=== PATIENT | male | born 1980 | race Hispanic/Latino ===

== ENCOUNTER 2018-03-11 13:49 | Emergency (ER) | payer MEDICAID ==
[2018-03-11 13:50] VITALS: BMI 26.7
[2018-03-11 14:01] VITALS: TEMP 98.7
[2018-03-11 14:13] LABS: BASO # 0.1 K/uL (0.0-0.2); BASO % 0.8 % (0.0-2.0); EOS # 0.1 K/uL (0.0-0.7); EOS % 1.6 % (0.0-4.0); HEMOGLOBIN 13.9 g/dL (12.0-18.0); LYMPH # 1.1 K/uL (1.0-4.3); LYMPH % 14.4 % (20.0-40.0); MEAN CORPUSCULAR HEMOGLOBIN 33.6 pg (27.0-31.0); MEAN CORPUSCULAR HGB CONC 34.6 g/dL (33.0-37.0); MEAN PLATELET VOLUME 8.5 fL (7.2-11.7); MONO # 0.8 K/uL (0.0-0.8); MONO % 9.5 % (0.0-10.0); NEUT # 5.8 K/uL (1.8-7.0); NEUT % 73.7 % (50.0-75.0); RBC 4.13 Mil/uL (4.40-5.90); WHITE BLOOD COUNT 7.9 K/uL (4.8-10.8)
[2018-03-11] MEDS ORDERED: Sodium Chloride 0.9% 1,000 ML ONE (14:13)
[2018-03-11] MEDS: Sodium Chloride 0.9% 1,000 ML IV ONE (14:13)
[2018-03-11 14:22] LABS: MEAN CELL VOLUME 97.1 fL (80.0-94.0)
--- NOTE | 2018-03-11 14:32 | RAD ---
Date of service: 03/11/2018 PROCEDURE: CHEST RADIOGRAPH, 1 VIEW HISTORY: SOB COMPARISON: None available. FINDINGS: LUNGS: Clear. PLEURA: No pneumothorax or pleural fluid seen. CARDIOVASCULAR: Normal. OSSEOUS STRUCTURES: No significant abnormalities. VISUALIZED UPPER ABDOMEN: Normal. OTHER FINDINGS: None. IMPRESSION: No active disease.
[2018-03-11 14:34] LABS: ALB/GLOB RATIO 1.6 (1.0-2.1); ALT/SGPT 78 U/L (21-72); AST/SGOT 165 U/L (17-59); BLOOD UREA NITROGEN 10 mg/dL (9-20); CALCIUM 9.2 mg/dl (8.6-10.4); GFR NON-AFRICAN AMERICAN > 60
[2018-03-11 14:36] LABS: SQUAMOUS EPITHIAL < 1 /hpf (0-5); URINE AMORPHOUS SEDIMENT RARE /ul (<OCC); URINE BACTERIA OCC (<OCC); URINE BILIRUBIN NEGATIVE (NEGATIVE); URINE BLOOD NEGATIVE (NEGATIVE); URINE CLARITY Hazy (Clear); URINE COLOR Amber (YELLOW); URINE GLUCOSE (UA) 1+ mg/dL (Normal); URINE LEUKOCYTE ESTERASE NEG Leu/uL (Negative); URINE PROTEIN 2+ mg/dL (NEGATIVE)
[2018-03-11 14:43] LABS: CK-MB 2.07 ng/mL (0.0-3.38)
--- NOTE | 2018-03-11 14:44 | C.PDOC ---
History Of Present Illness 38-year-old male, is brought to the emergency department by EMS with complaints of fall. Patient was walking his dog outside when a bystander witnessed him fall on the floor while "shaking." Patient hit his head, and was brought to ED after. He admits to a Hx of cocaine use and alcohol abuse, but last drink was a few days ago. Pts last seizure was in 2006. No other complaints at this time. Time Seen by Provider: 03/11/18 14:02 Chief Complaint (Nursing): Seizure History Per: Patient History/Exam Limitations: no limitations Past Medical History Reviewed: Historical Data, Nursing Documentation, Vital Signs Vital Signs: Last Vital Signs Temp 98.7 F 03/11/18 13:50 Pulse 116 H 03/11/18 13:50 Resp 18 03/11/18 13:50 BP 128/92 H 03/11/18 13:50 Pulse Ox 97 03/11/18 13:50 - Medical History PMH: Bipolar Disorder, Depression, Seizures Denies: Diabetes Family History: States: No Known Family Hx - Social History Hx Alcohol Use: Yes Hx Substance Use: Yes - Immunization History Hx Tetanus Toxoid Vaccination: No Hx Influenza Vaccination: No Hx Pneumococcal Vaccination: No Review Of Systems Constitutional: Negative for: Fever, Chills Respiratory: Negative for: Shortness of Breath Gastrointestinal: Negative for: Nausea, Vomiting Musculoskeletal: Negative for: Back Pain Neurological: Negative for: Weakness, Numbness Physical Exam - Physical Exam Appears: Non-toxic, No Acute Distress Skin: Warm, Dry, No Rash Head: Laceration, Other (laceration to left parietal scalp) Eye(s): bilateral: Normal Inspection, PERRL, EOMI Nose: Normal Oral Mucosa: Moist Tongue: Normal Appearing, No Bite, No Laceration Lips: Normal Appearing Neck: Normal ROM Chest: Symmetrical Cardiovascular: Rhythm Regular, No Murmur Respiratory: Normal Breath Sounds, No Accessory Muscle Use Gastrointestinal/Abdominal: Normal Exam, Soft, No Tenderness Extremity: Normal ROM, No Deformity Neurological/Psych: Oriented x3, Normal Speech ED Course And Treatment - Laboratory Results Result Diagrams: 03/11/18 14:10 03/11/18 14:10 Lab Interpretation: No Acute Changes ECG: Interpreted By Me ECG Rhythm: Sinus Rhythm ECG Interpretation: No Acute Changes Rate From EC O2 Sat by Pulse Oximetry: 97 Pulse Ox Interpretation: Normal (RA) - Radiology CXR: Interpreted by Me CXR Interpretation: Yes: No Acute Disease - CT Scan/US No standard instances Other Rad Studies (CT/US): Read By Radiologist, Radiology Report Reviewed CT/US Interpretation: FINDINGS: HEMORRHAGE: No intracranial hemorrhage. BRAIN: No mass effect or edema. No atrophy or chronic microvascular ischemic changes. VENTRICLES: Unremarkable. No hydrocephalus. CALVARIUM: No fracture. High left frontal scalp hematoma. PARANASAL SINUSES: Unremarkable as visualized. No significant inflammatory changes. MASTOID AIR CELLS: Unremarkable as visualized. No inflammatory changes. OTHER FINDINGS: None. IMPRESSION: No intracranial hemorrhage. Left frontal scalp hematoma. Progress Note: Pt states he has to go to work and wants to leave. Patient developed seizure activity treated with ativan 2 mg IV. Treated with additional ativan 1 mg IV Reassessment Condition: Improved - Physician Consult Information Physician Contacted: Kannan Odonnell Outcome Of Conversation: admit Laceration - Laceration Repair No standard instances Wound Length (In cm): 3 cm scalp Description Of Wound: Linear Anesthesia: Lidocaine 1% Wound Examination: Irrigated With Saline Wound Closure: [place] Wound Complexity: Simple Disposition Discussed With Dr.: Kannan Odonnell Doctor Will See Patient In The: Hospital - Disposition Disposition: HOSPITALIZED Disposition Time: 16:00 Condition: STABLE - POA Present On Arrival: None - Clinical Impression Clinical Impression: Seizure, Seizure disorder - Scribe Statement The provider has reviewed the documentation as recorded by the Scribe (Nikolas Temple) All medical record entries made by the Scribe were at my direction and personally dictated by me. I have reviewed the chart and agree that the record accurately reflects my personal performance of the history, physical exam, medic al decision making, and the department course for this patient. I have also personally directed, reviewed, and agree with the discharge instructions and disposition. Decision To Admit - Pt Status Changed To: Hospital Disposition Of: Inpatient - Admit Certification Admit to Inpatient:: After my assessment, the patient will require hospitalization for at least two midnights. This is because of the severity of symptoms shown, intensity of services needed, and/or the medical risk in this patient being treated as an outpatient. - InPatient: Physician Admission Certification: I certify that this patient requires 2 or more midnights of care for the following reason:: Seizure - . Bed Request Type: Telemetry Admitting Physician: Kannan Odonnell Patient Diagnosis: Seizure, Seizure disorder
[2018-03-11 15:11] LABS: BARBITURATES, UR NEGATIVE (NEGATIVE); BENZODIAZEPINES, UR NEGATIVE (NEGATIVE); OPIATES, UR NEGATIVE (NEGATIVE); PHENCYCLIDINE, UR NEGATIVE (NEGATIVE)
--- NOTE | 2018-03-11 15:29 | CT ---
Date of service: 03/11/2018 PROCEDURE: CT HEAD WITHOUT CONTRAST. HISTORY: R/O Bleed COMPARISON: None available. TECHNIQUE: Axial computed tomography images were obtained through the head/brain without intravenous contrast. Radiation dose: Total exam DLP = 1228.27 mGy-cm. This CT exam was performed using one or more of the following dose reduction techniques: Automated exposure control, adjustment of the mA and/or kV according to patient size, and/or use of iterative reconstruction technique. FINDINGS: HEMORRHAGE: No intracranial hemorrhage. BRAIN: No mass effect or edema. No atrophy or chronic microvascular ischemic changes. VENTRICLES: Unremarkable. No hydrocephalus. CALVARIUM: No fracture. High left frontal scalp hematoma. PARANASAL SINUSES: Unremarkable as visualized. No significant inflammatory changes. MASTOID AIR CELLS: Unremarkable as visualized. No inflammatory changes. OTHER FINDINGS: None. IMPRESSION: No intracranial hemorrhage. Left frontal scalp hematoma.
[2018-03-11 15:48] VITALS: O2SAT 97
[2018-03-11] MEDS ORDERED: Lidocaine Hydrochloride 5 ML INJ ONE (15:54)
[2018-03-11 17:35] VITALS: BP 146/83; PULSE 98; RESP 20
--- NOTE | 2018-03-11 20:00 | CP.PCM.PN ---
Subjective - Date & Time of Evaluation Date of Evaluation: 03/11/18 Time of Evaluation: 19:51 - Subjective Subjective: Earlier tonight, I was called by nurse Ileana to help sign this pt out AMA. I tried multiple times to persuade the pt to stay for treatment of his seizure and head trauma. He was adamant about going home, and insisted that he did not want to be admitted for treatment in the first place. Dr. Odonnell was contacted and informed that the pt was signing out AMA. I spoke with the patient at length about the risks of seizures and worsening of his condition; included but not limited to worsening of alcohol withdrawal (DTs), brain , coma, cardiac arrest and . Pt reiterated to me that he understood the risks involved, and would like to sign out AMA. Pt was AAOx3, able to explain to me and the nurse that he could from his current condition. However, he continued to say that he has to go home. Pt was instructed to follow up with his PMD LARISSA, pt understood and agreed to do so. Pt was informed to go to the nearest Emergency Department for evaluation should his symptoms worsen; pt agreed and understood. He stated that he would like to go home, and signed the paper for AMA on his own will. Objective - Vital Signs/Intake and Output Vital Signs (last 24 hours): Temp Pulse Resp BP Pulse Ox 98.7 F 98 H 20 146/83 97 03/11/18 16:50 03/11/18 16:50 03/11/18 16:50 03/11/18 16:50 03/11/18 17:24 - Labs Labs: 03/11/18 14:10 03/11/18 14:10
--- NOTE | 2018-03-12 23:03 | CARD ---
APPROVED REPORT Date of service: 03/11/2018 EKG Measurement Heart [id number] <Conclusion> Normal sinus rhythm Possible Left atrial enlargement Left ventricular hypertrophy Abnormal ECG
== END 2018-03-11 18:15 | disposition left against medical advice (07) ==
LOC: C.ER 13:49 → C.9E 15:40 → UNDOADMIN 15:40 → C.6T 16:21 → C.9E 16:21 → C.ER 18:15
DX: G40.909 Epilepsy, unspecified, not intractable, without status epilepticus (principal); S01.01XA Laceration without foreign body of scalp, initial encounter; W18.30XA Fall on same level, unspecified, initial encounter; Y93.K1 Activity, walking an animal
CPT/HCPCS: 12002; 70450; 71045; 80053; 80320; 80324; 80345; 80346; 80349; 80353; 80358; 80361; 81001; 82550; 82553; 82948; 83992; 84484; 85025; 93005; 96361; 96374; 99285; J2060; J7030